=== PATIENT | female | born 1975 | race Caucasian/White ===

== ENCOUNTER 2021-01-14 03:58 | Inpatient (IN) | payer BC ==
[~2021-01-14 03:58] MED LIST: Norepinephrine 8 MG/0.9% NS 250 ML IVPB SCH; Norepinephrine 8 MG/0.9% NS 250 ML ONE
[2021-01-14 04:38] VITALS: BMI 38.1
[2021-01-14] MEDS ORDERED: HUMULIN R 100 UNITS in Sodium Chloride 0.9% 100 ML IVPB SCH (05:30)
[2021-01-14] MEDS: Lactated Ringer's 1,000 ML IV SCH ×3 (05:40→20:35)
[2021-01-14] MEDS ORDERED: INSULIN REGULAR IN 0.9 % NACL 100 UNIT/100 ML BAG ONE ×2 (06:00→22:09)
[2021-01-14 06:02] LABS: #Eosinphils 0.3 10x3/uL (0.0-0.5); #Monocytes 1.4 10x3/uL (0.0-1.1); #Neutrophils 10.5 10x3/uL (1.5-8.4); %Basophils 0.2 % (0.0-2.0); %Lymphocytes 13.2 % (18.0-47.0); %Monocytes 9.9 % (0.0-10.0); %Neutrophils 74.1 % (40.0-75.0); Hemoglobin 12.9 g/dL (12.0-15.5); Mean Corpuscular HGB CONC 30.9 g/dL (32.0-36.0); Mean Corpuscular Hemoglobin 29.5 pg (27.0-33.0); Mean Corpuscular Volume 95.2 fl (81.6-98.3); Mean Platelet Volume 9.1 fl (7.4-10.4); Platelet Count 267 10x3/uL (150-450); RBC Distribution Width 17.3 % (11.5-14.5); Red Blood Cell (RBC) Count 4.38 10x6/uL (3.90-5.03); White Blood Cell (WBC) Count 14.2 10x3/uL (3.5-10.5)
[2021-01-14 06:03] LABS: BHCG - Serum Negative (NEGATIVE); Pregs Control Background? CLEAR/WHITE (CLR/WHITE); Pregs Control Bar Appear? YES (CONTROL BAR)
[2021-01-14 06:14] LABS: ALT (SGPT) 61 U/L (8-55); AST (SGOT) 53 U/L (5-34); Albumin 2.5 g/dL (3.5-5.0); Alkaline Phosphatase 102 U/L (40-110); Anion Gap 17 mmol/L (10-20); BUN (Urea Nitrogen) 9 mg/dL (7.0-18.7); Bilirubin, Total 0.6 mg/dL (0.2-1.2); Calc. Creatinine Clearance 76 mL/min (70-130); Calcium 7.4 mg/dL (7.8-10.44); Carbon Dioxide 22 mmol/L (22-29); Chloride 110 mmol/L (98-107); Globulin 2.6 g/dL (2.4-3.5); Glucose 309 mg/dL (70-105); Potassium 3.5 mmol/L (3.5-5.1); Protein, Total 5.1 g/dL (6.0-8.3); Sodium 145 mmol/L (136-145)
[2021-01-14] MEDS ORDERED: Sodium Chloride 0.9% (PF) 10 ML VIAL FS PRN (06:15)
[2021-01-14] MEDS: Cefepime 2 GM in Sodium Chloride 0.9% 100 ML IVPB SCH ×3 (06:16→22:10)
[2021-01-14] MEDS ORDERED: Pantoprazole 40 MG VIAL ONE (07:47)
[2021-01-14] MEDS: Pantoprazole 40 MG VIAL IVP SCH (08:58)
[2021-01-14] MEDS: Hydrocortisone Sod Succ/PF 100 mg/2 ml Vial IVP SCH ×3 (08:58→18:26)
[2021-01-14] MEDS: Enoxaparin Sodium 40 MG/0.4 ML SYRINGE SC SCH (08:59)
[2021-01-14] MEDS ORDERED: Prevnar 13-Val Conj/PF 0.5 ML SYRINGE IM ONE (09:00)
[2021-01-14] MEDS: Magnesium Sulfate/D5W 1 GM/100 ML BAG IVPB SCH ×2 (09:22→10:32)
[2021-01-14 12:48] LABS: Magnesium 2.5 mg/dL (1.6-2.6); Potassium 3.7 mmol/L (3.5-5.1)
[2021-01-14 12:52] LABS: Phosphorus Less than 1.0 mg/dL (2.3-4.7)
[2021-01-14] MEDS: INSULIN REGULAR IN 0.9 % NACL 100 UNIT in Premix Bag 1 BAG IVPB SCH ×2 (15:17→18:25)
[2021-01-14] MEDS ORDERED: Sodium Phosphate 15 MMOL in Sodium Chloride 0.9% 250 ML 250 ML IVPB SCH (17:30)
[2021-01-14] MEDS ORDERED: PHOS-NAK 1 PKT PACK PO SCH (17:30)
[2021-01-14] MEDS: Sodium Phosphate 15 MMOL in Sodium Chloride 0.9% 250 ML 250 ML IVPB SCH ×2 (18:26→20:30)
[2021-01-14 21:39] LABS: Magnesium 1.7 mg/dL (1.6-2.6)
[2021-01-14 21:43] LABS: Potassium 2.8 mmol/L (3.5-5.1)
[2021-01-14 21:44] LABS: Phosphorus Less than 1.0 mg/dL (2.3-4.7)
[2021-01-14] MEDS ORDERED: Electrolyte Replacement Protocol FS PRN (22:15)
[2021-01-14] MEDS ORDERED: Magnesium 2 GM/50 ML 2 GM in Premix Bag 1 BAG IVPB SCH (22:15)
[2021-01-14] MEDS: Potassium Chloride 20 MEQ in Premix Bag 1 BAG IVPB SCH ×2 (22:45→23:45)
[2021-01-15] MEDS ORDERED: INSULIN REGULAR IN 0.9 % NACL 100 UNIT/100 ML BAG ONE ×3 (00:32→06:31)
[2021-01-15] MEDS: Potassium Chloride 20 MEQ in Premix Bag 1 BAG IVPB SCH ×4 (00:45→08:23)
[2021-01-15] MEDS: Hydrocortisone Sod Succ/PF 100 mg/2 ml Vial IVP SCH ×3 (01:05→13:28)
[2021-01-15] MEDS: Lactated Ringer's 1,000 ML IV SCH ×3 (02:40→14:40)
[2021-01-15 04:48] LABS: #Monocytes 0.4 10x3/uL (0.0-1.1); #Neutrophils 13.1 10x3/uL (1.5-8.4); %Basophils 0.2 % (0.0-2.0); %Lymphocytes 10.1 % (18.0-47.0); %Monocytes 2.9 % (0.0-10.0); %Neutrophils 86.2 % (40.0-75.0); Hemoglobin 12.5 g/dL (12.0-15.5); Mean Corpuscular HGB CONC 31.8 g/dL (32.0-36.0); Mean Corpuscular Hemoglobin 29.4 pg (27.0-33.0); Mean Corpuscular Volume 92.5 fl (81.6-98.3); Mean Platelet Volume 9.3 fl (7.4-10.4); Platelet Count 244 10x3/uL (150-450); RBC Distribution Width 18.1 % (11.5-14.5); Red Blood Cell (RBC) Count 4.25 10x6/uL (3.90-5.03); White Blood Cell (WBC) Count 15.2 10x3/uL (3.5-10.5)
[2021-01-15 05:07] LABS: Phosphorus Less than 1.0 mg/dL (2.3-4.7)
[2021-01-15] MEDS: Cefepime 2 GM in Sodium Chloride 0.9% 100 ML IVPB SCH ×3 (05:12→21:59)
[2021-01-15 05:19] LABS: Anion Gap 14 mmol/L (10-20); BUN (Urea Nitrogen) 8 mg/dL (7.0-18.7); Calc. Creatinine Clearance 140 mL/min (70-130); Carbon Dioxide 25 mmol/L (22-29); Chloride 113 mmol/L (98-107); Glucose 185 mg/dL (70-105); Magnesium 1.8 mg/dL (1.6-2.6); Sodium 149 mmol/L (136-145)
[2021-01-15 05:22] LABS: Potassium 2.9 mmol/L (3.5-5.1)
[2021-01-15] MEDS ORDERED: Magnesium 2 GM/50 ML 2 GM in Premix Bag 1 BAG IVPB SCH (05:45)
[2021-01-15] MEDS ORDERED: Vancomycin HCl 1.5 GM in Sodium Chloride 0.9% 250 ML 300 ML IVPB SCH (06:00)
[2021-01-15] MEDS ORDERED: Potassium Phosphate 30 MMOL in Sodium Chloride 0.9% 250 ML 250 ML IVPB SCH (06:30)
[2021-01-15] MEDS ORDERED: HUMULIN R 100 UNITS in Sodium Chloride 0.9% 100 ML IVPB SCH (07:30)
[2021-01-15] MEDS ORDERED: Vancomycin HCl 500 MG in Sodium Chloride 0.9% 100 ML IVPB SCH (08:00)
[2021-01-15] MEDS: Pantoprazole 40 MG VIAL IVP SCH (08:24)
[2021-01-15] MEDS: Enoxaparin Sodium 40 MG/0.4 ML SYRINGE SC SCH (08:24)
[2021-01-15] MEDS ORDERED: PHOS-NAK 1 PKT PACK PO SCH (09:00)
[2021-01-15] MEDS ORDERED: Simethicone Chewable 80 MG TAB PO PRN (15:19)
[2021-01-15] MEDS: VANCOMYCIN 1.25 GM, Admixture Fee 1 EACH in Sodium Chloride 0.9% 250 ML 250 ML IVPB SCH (17:14)
[2021-01-15 17:22] LABS: Magnesium 1.9 mg/dL (1.6-2.6); Phosphorus 1.9 mg/dL (2.3-4.7); Potassium 3.1 mmol/L (3.5-5.1)
[2021-01-15] MEDS ORDERED: Hydrocortisone 10 mg Tablet PO SCH ×2 (17:30)
[2021-01-15] MEDS ORDERED: POTASSIUM CHLORIDE IVPB SCH (17:45)
[2021-01-15] MEDS ORDERED: SODIUM CHLORIDE 0.9% IVPB SCH (17:45)
[2021-01-15] MEDS ORDERED: Potassium Phosphate 15 MMOL in Sodium Chloride 0.9% 250 ML 250 ML IVPB SCH (17:45)
[2021-01-15] MEDS: Fludrocortisone Acetate 0.1 MG TAB PO SCH (20:32)
[2021-01-16] MEDS: Acetaminophen 325 MG TAB PO PRN ×2 (00:58→08:02)
[2021-01-16] MEDS ORDERED: Ketorolac Tromethamine 30 MG/ML VIAL IVP SCH (03:15)
[2021-01-16 03:28] LABS: #Monocytes 0.8 10x3/uL (0.0-1.1); #Neutrophils 11.5 10x3/uL (1.5-8.4); %Basophils 0.1 % (0.0-2.0); %Lymphocytes 13.4 % (18.0-47.0); %Monocytes 5.7 % (0.0-10.0); %Neutrophils 80.5 % (40.0-75.0); Hemoglobin 11.6 g/dL (12.0-15.5); Mean Corpuscular HGB CONC 31.9 g/dL (32.0-36.0); Mean Corpuscular Hemoglobin 29.6 pg (27.0-33.0); Mean Corpuscular Volume 92.9 fl (81.6-98.3); Mean Platelet Volume 9.3 fl (7.4-10.4); Platelet Count 241 10x3/uL (150-450); RBC Distribution Width 18.3 % (11.5-14.5); Red Blood Cell (RBC) Count 3.92 10x6/uL (3.90-5.03); White Blood Cell (WBC) Count 14.3 10x3/uL (3.5-10.5)
[2021-01-16 03:46] LABS: Anion Gap 13 mmol/L (10-20); BUN (Urea Nitrogen) 8 mg/dL (7.0-18.7); Calc. Creatinine Clearance 145 mL/min (70-130); Calcium 6.9 mg/dL (7.8-10.44); Carbon Dioxide 27 mmol/L (22-29); Chloride 108 mmol/L (98-107); Glucose 162 mg/dL (70-105); Sodium 145 mmol/L (136-145)
[2021-01-16 04:11] LABS: Potassium 2.7 mmol/L (3.5-5.1)
[2021-01-16] MEDS: Potassium Chloride 20 MEQ TAB PO SCH ×2 (05:20→06:35)
[2021-01-16 05:26] LABS: Magnesium 1.7 mg/dL (1.6-2.6); Phosphorus 2.6 mg/dL (2.3-4.7)
[2021-01-16] MEDS: VANCOMYCIN 1.25 GM, Admixture Fee 1 EACH in Sodium Chloride 0.9% 250 ML 250 ML IVPB SCH (05:26)
[2021-01-16] MEDS: Cefepime 2 GM in Sodium Chloride 0.9% 100 ML IVPB SCH ×3 (05:26→20:26)
[2021-01-16] MEDS: Pantoprazole 40 MG VIAL IVP SCH (09:01)
[2021-01-16] MEDS: Enoxaparin Sodium 40 MG/0.4 ML SYRINGE SC SCH (09:01)
[2021-01-16] MEDS: Fludrocortisone Acetate 0.1 MG TAB PO SCH ×3 (09:02→20:26)
[2021-01-16] MEDS: Hydrocortisone 10 mg Tablet PO SCH ×2 (09:10→17:09)
[2021-01-16] MEDS ORDERED: Polyethylene Glycol 3350 17 GM Packet PO SCH (10:00)
[2021-01-16] MEDS: Ketorolac Tromethamine 30 MG/ML VIAL IVP PRN (11:29)
[2021-01-16 16:21] LABS: Potassium 3.5 mmol/L (3.5-5.1)
[2021-01-16] MEDS: metFORMIN 500 MG TAB PO SCH (17:09)
[2021-01-16] MEDS ORDERED: Dextrose 50% Abboject 50 ML SYRINGE SLOW IVP PRN (17:41)
[2021-01-16] MEDS ORDERED: Dextrose 5% in Water 1,000 ML IV PRN (17:41)
[2021-01-16] MEDS ORDERED: Potassium Chloride 20 MEQ TAB PO SCH (18:00)
[2021-01-16] MEDS ORDERED: Magnesium 2 GM/50 ML 2 GM in Premix Bag 1 BAG IVPB SCH (18:00)
[2021-01-16] MEDS: HumaLOG 300 UNITS/3 ML VIAL SC PRN ×2 (18:17→22:11)
[2021-01-16] MEDS: Amitriptyline HCl 10 MG TAB PO SCH (20:26)
[2021-01-16] MEDS: Topiramate 100 MG TAB PO SCH (20:26)
[2021-01-16] MEDS: Docusate 100 MG CAP PO SCH (20:26)
[2021-01-17 03:53] LABS: #Eosinphils 0.2 10x3/uL (0.0-0.5); #Neutrophils 8.4 10x3/uL (1.5-8.4); %Basophils 0.3 % (0.0-2.0); %Eosinophils 1.3 % (0.0-6.0); %Lymphocytes 16.7 % (18.0-47.0); %Monocytes 8.5 % (0.0-10.0); %Neutrophils 72.9 % (40.0-75.0); Hemoglobin 12.1 g/dL (12.0-15.5); Mean Corpuscular HGB CONC 32.8 g/dL (32.0-36.0); Mean Corpuscular Hemoglobin 30.4 pg (27.0-33.0); Mean Corpuscular Volume 92.7 fl (81.6-98.3); Mean Platelet Volume 9.1 fl (7.4-10.4); Platelet Count 245 10x3/uL (150-450); RBC Distribution Width 18.2 % (11.5-14.5); Red Blood Cell (RBC) Count 3.98 10x6/uL (3.90-5.03); White Blood Cell (WBC) Count 11.5 10x3/uL (3.5-10.5)
[2021-01-17 04:15] LABS: Anion Gap 11 mmol/L (10-20); BUN (Urea Nitrogen) 9 mg/dL (7.0-18.7); Calc. Creatinine Clearance 151 mL/min (70-130); Calcium 7.1 mg/dL (7.8-10.44); Carbon Dioxide 27 mmol/L (22-29); Chloride 109 mmol/L (98-107); Glucose 130 mg/dL (70-105); Magnesium 1.9 mg/dL (1.6-2.6); Sodium 144 mmol/L (136-145)
[2021-01-17] MEDS: Acetaminophen 325 MG TAB PO PRN (05:34)
[2021-01-17] MEDS ORDERED: Electrolyte Replacement Protocol 1 EACH FS SCH (06:00)
[2021-01-17] MEDS ORDERED: Magnesium 2 GM/50 ML 2 GM in Premix Bag 1 BAG IVPB SCH (06:00)
[2021-01-17] MEDS ORDERED: Potassium Chloride 20 MEQ TAB PO SCH (06:00)
[2021-01-17] MEDS: Thyroid 60 MG TAB PO SCH (06:45)
[2021-01-17] MEDS: Cefepime 2 GM in Sodium Chloride 0.9% 100 ML IVPB SCH (06:45)
[2021-01-17] MEDS: Polyethylene Glycol 3350 17 GM Packet PO SCH (08:20)
[2021-01-17] MEDS: Pantoprazole 40 MG VIAL IVP SCH (08:20)
[2021-01-17] MEDS: Topiramate 100 MG TAB PO SCH ×2 (08:20→22:50)
[2021-01-17] MEDS: metFORMIN 500 MG TAB PO SCH ×2 (08:21→16:22)
[2021-01-17] MEDS: Rosuvastatin 20 MG TAB PO SCH (08:21)
[2021-01-17] MEDS: Aspirin Chewable 81 MG TAB PO SCH (08:21)
[2021-01-17] MEDS: Hydrocortisone 10 mg Tablet PO SCH ×2 (08:21→18:27)
[2021-01-17] MEDS: Docusate 100 MG CAP PO SCH ×2 (08:22→22:50)
[2021-01-17] MEDS: Enoxaparin Sodium 40 MG/0.4 ML SYRINGE SC SCH (08:22)
[2021-01-17] MEDS: Fludrocortisone Acetate 0.1 MG TAB PO SCH ×3 (08:22→23:04)
[2021-01-17] MEDS: Ketorolac Tromethamine 30 MG/ML VIAL IVP PRN ×3 (08:36→23:00)
[2021-01-17] MEDS ORDERED: Preparation H Ointment 28 GM TUBE TOP PRN (10:23)
[2021-01-17] MEDS: HumaLOG 300 UNITS/3 ML VIAL SC PRN (18:22)
[2021-01-17] MEDS: Sulfameth/Trimethoprim DS 800-160mg TAB PO SCH (22:50)
[2021-01-17] MEDS: Amitriptyline HCl 10 MG TAB PO SCH (22:50)
[2021-01-18] MEDS: Ketorolac Tromethamine 30 MG/ML VIAL IVP PRN ×3 (04:26→16:04)
[2021-01-18] MEDS: Aspirin Chewable 81 MG TAB PO SCH (10:55)
[2021-01-18] MEDS: Sulfameth/Trimethoprim DS 800-160mg TAB PO SCH ×2 (10:56→21:22)
[2021-01-18] MEDS: Rosuvastatin 20 MG TAB PO SCH (10:56)
[2021-01-18] MEDS: metFORMIN 500 MG TAB PO SCH ×2 (10:56→18:15)
[2021-01-18] MEDS: Docusate 100 MG CAP PO SCH ×2 (10:56→21:22)
[2021-01-18] MEDS: Pantoprazole 40 MG VIAL IVP SCH (10:57)
[2021-01-18] MEDS: Polyethylene Glycol 3350 17 GM Packet PO SCH (10:58)
[2021-01-18] MEDS: Enoxaparin Sodium 40 MG/0.4 ML SYRINGE SC SCH (10:58)
[2021-01-18] MEDS ORDERED: Ondansetron PF 4 MG/2 ML Vial IVP PRN (11:27)
[2021-01-18] MEDS: Acetaminophen 325 MG TAB PO PRN ×3 (12:04→23:54)
[2021-01-18] MEDS: Thyroid 60 MG TAB PO SCH (14:14)
[2021-01-18] MEDS: Fludrocortisone Acetate 0.1 MG TAB PO SCH ×3 (14:14→21:22)
[2021-01-18] MEDS: Hydrocortisone 10 mg Tablet PO SCH ×2 (16:03→16:04)
[2021-01-18] MEDS: Topiramate 100 MG TAB PO SCH ×2 (16:04→21:23)
[2021-01-18] MEDS: Amitriptyline HCl 10 MG TAB PO SCH (21:22)
[2021-01-19] MEDS: Ketorolac Tromethamine 30 MG/ML VIAL IVP PRN ×2 (04:09→14:14)
[2021-01-19 04:58] LABS: #Basophils 0.1 10x3/uL (0.0-0.2); #Eosinphils 0.2 10x3/uL (0.0-0.5); #Monocytes 1.2 10x3/uL (0.0-1.1); #Neutrophils 5.9 10x3/uL (1.5-8.4); %Basophils 0.7 % (0.0-2.0); %Lymphocytes 25.6 % (18.0-47.0); %Monocytes 11.9 % (0.0-10.0); %Neutrophils 57.8 % (40.0-75.0); Hemoglobin 11.8 g/dL (12.0-15.5); Mean Corpuscular Hemoglobin 29.8 pg (27.0-33.0); Mean Corpuscular Volume 93.2 fl (81.6-98.3); Mean Platelet Volume 9.5 fl (7.4-10.4); Platelet Count 269 10x3/uL (150-450); RBC Distribution Width 18.3 % (11.5-14.5); Red Blood Cell (RBC) Count 3.96 10x6/uL (3.90-5.03); White Blood Cell (WBC) Count 10.2 10x3/uL (3.5-10.5)
[2021-01-19 05:06] LABS: Anion Gap 11 mmol/L (10-20); BUN (Urea Nitrogen) 14 mg/dL (7.0-18.7); Calc. Creatinine Clearance 149 mL/min (70-130); Calcium 7.5 mg/dL (7.8-10.44); Carbon Dioxide 23 mmol/L (22-29); Chloride 108 mmol/L (98-107); Glucose 85 mg/dL (70-105); Potassium 3.2 mmol/L (3.5-5.1); Sodium 139 mmol/L (136-145)
[2021-01-19] MEDS: Rosuvastatin 20 MG TAB PO SCH (10:50)
[2021-01-19] MEDS: Topiramate 100 MG TAB PO SCH (10:55)
[2021-01-19] MEDS: Enoxaparin Sodium 40 MG/0.4 ML SYRINGE SC SCH (10:55)
[2021-01-19] MEDS: Acetaminophen 325 MG TAB PO PRN (10:55)
[2021-01-19] MEDS: Hydrocortisone 10 mg Tablet PO SCH (10:56)
[2021-01-19] MEDS: Sulfameth/Trimethoprim DS 800-160mg TAB PO SCH (10:57)
[2021-01-19] MEDS: metFORMIN 500 MG TAB PO SCH (10:57)
[2021-01-19] MEDS: Aspirin Chewable 81 MG TAB PO SCH (10:57)
[2021-01-19] MEDS: Docusate 100 MG CAP PO SCH (10:57)
[2021-01-19] MEDS: Pantoprazole 40 MG VIAL IVP SCH (10:57)
[2021-01-19] MEDS: Fludrocortisone Acetate 0.1 MG TAB PO SCH (11:04)
[2021-01-19] MEDS: Thyroid 60 MG TAB PO SCH (11:04)
[2021-01-19] MEDS: Polyethylene Glycol 3350 17 GM Packet PO SCH (11:05)
[2021-01-19 12:29] VITALS: BP 119/73; TEMP 98.3
[2021-01-19] MEDS ORDERED: Potassium Chloride 20 MEQ TAB PO SCH (12:30)
== END 2021-01-19 13:54 | disposition home health service (06) | DRG 871 ==
LOC: CSHICU 03:58 → UNDOADMIN 03:58 → CSHICU 08:27 → CSHTELE 01-17 13:31
PROVIDERS: ADMIT Family Medicine; ATTEND Hospitalist
PROC: 3E053XZ Introduction of Vasopressor into Peripheral Artery, Percutaneous Approach (ICD-10-PCS; principal; 2021-01-14)
DX: A41.9 Sepsis, unspecified organism (principal); R65.21 Severe sepsis with septic shock; N39.0 Urinary tract infection, site not specified; I67.5 Moyamoya disease; E27.40 Unspecified adrenocortical insufficiency; N17.9 Acute kidney failure, unspecified; E87.6 Hypokalemia; E83.42 Hypomagnesemia; E11.22 Type 2 diabetes mellitus with diabetic chronic kidney disease; N18.32 Chronic kidney disease, stage 3b; E03.9 Hypothyroidism, unspecified; Z88.1 Allergy status to other antibiotic agents; Z88.5 Allergy status to narcotic agent; Z88.0 Allergy status to penicillin; Z79.84 Long term (current) use of oral hypoglycemic drugs; Z79.82 Long term (current) use of aspirin; Z79.890 Hormone replacement therapy; Z79.891 Long term (current) use of opiate analgesic; Z79.899 Other long term (current) drug therapy; Z68.38 Body mass index [BMI] 38.0-38.9, adult; E83.39 Other disorders of phosphorus metabolism; E66.01 Morbid (severe) obesity due to excess calories; R10.9 Unspecified abdominal pain
CPT/HCPCS: 36415; 36416; 74177; 80048; 80053; 82533; 83605; 83735; 84100; 84145; 84443; 84484; 84703; 85025; 93005; 93010; 93306; C9113; J0692; J1650; J1720; J1815; J1885; J2405; J3370; J3475; J3480; J3490; J7030; J7050